=== PATIENT | female | born 1935 ===

== ENCOUNTER 2018-05-12 12:15 | Inpatient (IN) | payer OTHER ==
[~2018-05-12] VITALS: Ht 152.4 cm; Wt 47.2 kg
[2018-05-12] MEDS ORDERED: PREVACID30 MG PO (14:39)
[2018-05-12] MEDS ORDERED: SYNTHROID100 MCG PO (14:39)
[2018-05-12] MEDS ORDERED: PRAVACHOL80 MG PO (14:40)
== END 2018-05-23 20:51 | disposition home or self-care (01) | DRG 330 ==
LOC: O/R 05-16 07:23 → SURG 05-16 07:23 → O/R 05-16 12:15 → SURG 05-16 17:30
PROVIDERS: Colon & Rectal Surgery
PROC: 07TC4ZZ Resection of Pelvis Lymphatic, Percutaneous Endoscopic Approach (ICD-10-PCS; 2018-05-16)
PROC: 4A1BXSH Monitoring of Gastrointestinal Vascular Perfusion using Indocyanine Green Dye, External Approach (ICD-10-PCS; 2018-05-16)
PROC: 0DTF4ZZ Resection of Right Large Intestine, Percutaneous Endoscopic Approach (ICD-10-PCS; principal; 2018-05-16 12:45)
DX: C18.0 Malignant neoplasm of cecum (principal); C18.2 Malignant neoplasm of ascending colon; E03.8 Other specified hypothyroidism; E11.9 Type 2 diabetes mellitus without complications; D64.89 Other specified anemias; R50.9 Fever, unspecified; M25.561 Pain in right knee; I11.9 Hypertensive heart disease without heart failure; E83.39 Other disorders of phosphorus metabolism

== ENCOUNTER 2025-08-04 07:00 | Day surgery (SDC) | payer OTHER ==
[~2025-08-04 07:00] MED LIST: PRAVACHOL80 MG PO; PREVACID30 MG PO; SYNTHROID100 MCG PO
[2025-08-04] MEDS ORDERED: DIPHENHYDRAMINE HCL 50 MG/ML VIAL 1ML IV ONE (08:45)
[2025-08-04] MEDS ORDERED: MIDAZOLAM HCL 2 MG/2 ML VIAL IV ONE (08:45)
[2025-08-04] MEDS ORDERED: fentaNYL CITRATE 50 MCG/ML AMPUL IV PUSH ONE (08:45)
[2025-08-04] MEDS ORDERED: ONDANSETRON HCL 2 MG/ML VIAL IV ONE (08:45)
== END 2025-08-04 10:00 | disposition home or self-care (01) ==
LOC: AMB-ENDOS 07:00
PROVIDERS: ATTEND Colon & Rectal Surgery
DX: K63.5 Polyp of colon (principal); K57.30 Diverticulosis of large intestine without perforation or abscess without bleeding